=== PATIENT | female | born 1970 | race Caucasian/White ===

== ENCOUNTER 2020-04-15 11:36 | Emergency (ER) | payer OTHER, SELFPAY ==
--- NOTE | ~2020-04-15 | XR_ITS ---
XR wrist LT min 3V 04/15/2020 12:24 Indication: Left wrist pain Procedure: 4 views left wrist Comparison: No prior studies for comparison. Findings: No acute fracture or traumatic malalignment. There is mild degenerative change of the trisc aphe joint. No significant soft tissue abnormality. No radiopaque foreign bodies. Impression: 1: No acute bone or joint abnormality. Reviewed, dictated and finalized at location A. MANAGER Impression: 1: No acute bone or joint abnormality.
[2020-04-15 11:52] VITALS: BP 135/68; PULSE 79; RESP 14; TEMP 36.3; O2SAT 97
--- NOTE | 2020-04-15 12:18 | ED.GENADULT ---
HPI - General Adult General Chief complaint: Extremity Injury, Upper Stated complaint: Fall Source: patient Mode of arrival: ambulatory Limitations: no limitations History of Present Illness HPI narrative: Patient presents for evaluation treatment of left wrist pain. She indicates she had a ground-level mechanical fall after tripping over a curb yesterday. She did not hit her head or have loss of consciousness. She braced her fall with her LUE. She has experienced pain and swelling since that time. She reports the pain as being a dull aching sensation, without numerical rating. She is some chronic numbness and tingling in bilateral hands, not worse since his injury. She tried taking ibuprofen with some improvement in her symptoms thereafter. She is right hand dominant. No additional complaints or concerns. Related Data Home Medications Medication Instructions Recorded Confirmed dextroamphetamine-amphetamine 10 mg PO DAILY 04/15/20 04/15/20 dextroamphetamine-amphetamine 15 mg PO DAILY 04/15/20 04/15/20 Allergies Allergy/AdvReac Type Severity Reaction Status Date / Time Sulfa (Sulfonamide Allergy Anaphylaxis Verified 04/15/20 12:03 Antibiotics) Review of Systems Review of Systems: Narrative: CONSTITUTIONAL: Denies fever, chills, or sweats. EYES: Denies visual changes, redness, or discharge. ENT: Denies rhinorrhea, congestion, sore throat, or otalgia. CARDIOVASCULAR: Denies chest pain, palpitations. Reports swelling in the left wrist. RESPIRATORY: Denies cough or dyspnea. GASTROINTESTINAL: Denies abdominal pain, nausea, vomiting, or diarrhea. GENITOURINARY: Denies dysuria or hematuria. SKIN: Denies rash or itching. MUSCULOSKELETAL: Denies back pain and myalgias. Reports left wrist pain. NEUROLOGIC: Denies headache, numbness, dizziness, or weakness. PSYCHIATRIC: Denies anxiety or depression. [facility] Past Medical History Medical History (Updated 04/15/20 @ 12:52 by Timo Varela, [place], [place]) Attention deficit disorder Surgical History Surgical History H/O sinus surgery History of arthroscopic surgery of shoulder History of section Family History Family History Father Cerebrovascular accident Mother Diabetes mellitus Social History Social History (Updated 04/15/20 @ 12:23 by Timo Varela, [facility], ) Smoking packs per day: 1 Smoking cigarettes per day: 20.0 Smoking status: Current every day smoker Substance use type: marijuana Living arrangements: with family Gender identity (if verbalized by the patient): Female Spiritual care concerns: No Exam Narrative: Exam Narrative: GENERAL: Well-appearing, well-nourished, and in no acute distress. HEAD: Normocephalic, atraumatic. EYES: PERRLA and EOMI. ENT: Nares clear, no rhinorrhea or epistaxis. Mucous membranes moist. Oropharynx without tonsillar hypertrophy exudate or other lesions. Bilateral TMs pearly blunt nonbulging NECK: Supple. No adenopathy or masses. No carotid bruits or JVD CHEST: Clear to auscultation. No respiratory distress. No wheezes rales or rhonchi HEART: Regular rate and rhythm. No murmur heard. Normal peripheral pulses. ABDOMEN: Soft, nontender, nondistended, normal active bowel sounds. EXTREMITIES: Decreased range of motion of the left wrist. 3 out of 5 hand group leader semiconductor testing strength on the left, 5 out of 5 hand group leader semiconductor testing strength on the right. Tenderness over left distal radius. No tenderness in the left hand or proximal forearm SKIN: Warm, dry, no rash. Ecchymosis noted to the left wrist NEURO: No focal deficits. Alert and oriented x3. PSYCH: Normal mood and affect. Course Course Emergency Course: This is a 50-year-old female that presents for left wrist pain following a fall yesterday. Her x-ray was negative for fracture. She already has a wrist splint. We will provide her with a sling. She
--- NOTE | 2020-04-15 12:24 | PC.NURSE ---
PT DECLINED ICE FOR COMFORT
== END 2020-04-15 13:00 | disposition home or self-care (01) ==
PROVIDERS: Emergency Provider Nurse Practitioner; PCP Family Medicine
DX: M25.532 Pain in left wrist (principal); S63.502A Unspecified sprain of left wrist, initial encounter; W18.09XA Striking against other object with subsequent fall, initial encounter; F98.8 Other specified behavioral and emotional disorders with onset usually occurring in childhood and adolescence
CPT/HCPCS: 73110; 99213; A4565; G0463